=== PATIENT | female | born 1985 | race African-American/Black ===

== ENCOUNTER 2016-07-24 | Inpatient (IN) ==
[2016-07-24] MEDS ORDERED: ONDANSETRON 4 MG/2 ML VIAL IV PRN ×2 (00:14→05:41)
[2016-07-24] MEDS ORDERED: ACETAMINOPHEN 325 MG TABLET PO PRN ×2 (00:14→05:41)
[2016-07-24] MEDS ORDERED: BUTORPHANOL 2 MG/ML VIAL IV PRN (00:14)
[2016-07-24] MEDS ORDERED: OXYTOCIN/LR 20 UNIT/1,000 ML BAG IV SCH (00:30)
[2016-07-24 00:36] LABS: Basophils % 0.3 % (0.0-0.8); Eosinophils # 0.1 10*3/uL (0.0-0.87); Eosinophils % 0.8 % (0.00-10.9); Hematocrit 33.9 VOL% (35.7-47.0); Hemoglobin 11.1 GM/DL (12.0-16.0); Immature Granulocytes % 0.6 %; Immature Granulocytes Absolute 0.08 #; Lymphocytes # 3.6 10*3/uL (1.4-4.0); Lymphocytes % 26.5 % (21.3-54.2); Mean Corpuscular HGB Conc 32.7 GM/DL (32-36); Mean Corpuscular Hemoglobin 26 PG (27-34); Mean Corpuscular Volume 79.8 FL (87-102); Mean Platelet Volume 10.7 FL (9.6-12.0); Monocytes # 1.3 10*3/uL (0.11-0.8); Monocytes % 9.4 % (1.7-12.7); Neutrophils # 8.6 10*3/uL (1.4-7.4); Neutrophils % 62.4 % (38.7-73.9); Platelet Count 306 T/CUMM (130-400); Red Blood Count 4.25 MC/CUMM (3.8-5.5); Red Cell Distribution Width 13.9 % (9.3-17.3); White Blood Count 13.7 T/CUMM (4-12)
[2016-07-24] MEDS: LACTATED RINGERS 1,000 ML IV SCH ×2 (00:36→02:43)
[2016-07-24] MEDS ORDERED: AMPICILLIN INJ 2,000 MG in SODIUM CHLORIDE 0.9% 100 ML IV SCH (01:00)
[2016-07-24] MEDS ORDERED: FAMOTIDINE 20 MG/2 ML VIAL IV ONE (02:02)
[2016-07-24] MEDS ORDERED: ePHEDrine 50 MG/ML AMP IV PRN (02:02)
[2016-07-24] MEDS ORDERED: CITRIC ACID/SODIUM CITRATE 30 ML UDCUP PO ONE (02:02)
[2016-07-24] MEDS ORDERED: fentaNYL 2 MCG/ROPIV 0.2% EPID 150 ML EPIDURAL SCH (02:03)
[2016-07-24] MEDS ORDERED: MEPERIDINE 50 MG/1 ML VIAL IV PRN (02:35)
[2016-07-24] MEDS ORDERED: MEPERIDINE 50 MG/1 ML VIAL ONE (02:37)
[2016-07-24 04:47] LABS: Apearance,Urine CLEAR (Clear); Bilirubin,Urine Negative (Negative); Blood, Urine Negative (Negative); Glucose,Urine (UA) Negative (Negative); Ketones,Urine 5 mg/dL (Negative); Mucus,Urine Occasional /LPF (Occasional); Nitrite,Urine Negative (Negative); Protein,Urine Negative; RBC,Urine 1 /HPF (0-4); Squamous Epithelial Cell,Urine Occasional /HPF (0-10); Urine Color Yellow (Yellow); Urine Specific Gravity 1.026 (1.001-1.035); Urine Urobilinogen < 2.0 EU/DL (0.2-1.0); WBC,Urine 1 /HPF (0-6)
[2016-07-24] MEDS ORDERED: OXYTOCIN/LR 20 UNIT/1,000 ML BAG IV ONE (05:41)
[2016-07-24] MEDS ORDERED: LANOLIN 50% CREAM 0.3 OZ TUBE TOP PRN (05:41)
[2016-07-24] MEDS ORDERED: oxyCODONE/ACETAMINOPHEN 5-325 MG TABLET PO PRN (05:41)
[2016-07-24] MEDS ORDERED: HYDROCORTISONE 2.5% RECTAL CREAM 30 GM TUBE TOP PRN (05:41)
[2016-07-24] MEDS ORDERED: DIPH/TET/ACEL PERT BOOSTER VACCINE 0.5 ML VIAL IM ONE (05:41)
[2016-07-24] MEDS ORDERED: RHO(D) IMMUNE GLOBULIN 300 MCG SYRINGE IM ONE (05:41)
[2016-07-24] MEDS ORDERED: BENZOCAINE 20%/MENTHOL 0.5% SPRAY 56 GM CAN TOP PRN (05:41)
[2016-07-24] MEDS ORDERED: BISACODYL 10 MG SUPP RECTAL PRN (05:41)
[2016-07-24] MEDS ORDERED: MEASLES/MUMPS/RUBELLA VACCINE 0.5 ML VIAL SUBCUT ONE (05:41)
[2016-07-24] MEDS ORDERED: WITCH HAZEL PADS 100/JAR TOP PRN (05:41)
--- NOTE | 2016-07-24 05:43 | Operative Note ---
Date of procedure: 07/24/16 Procedure Preformed: Patient delivered a liveborn male infant via spontaneous vaginal delivery. Baby 's head was delivered in the OA position. The baby's nose mouth bulb suctioned the perineum. Anterior posterior shoulders followed by the body was delivered with ease. Status post internal after" was doubly clamped and cut. Cord blood was sent. Placenta was delivered spontaneously and intact with three-vessel cord. The uterus was massaged and was found to confirm a well contracted. The patient sustained no lacerations. Birthweight []. Apgars 8 9. Baby and mother stable. And the procedure all sponge lap counts correct 2. Surgeon / Physician: Kaci Fay Post-op diagnosis: same Findings: liveborn male infant Specimens: none sent Estimated blood loss: other (100ml) Condition: stable Anesthesia: epidural Disposition: floor
--- NOTE | 2016-07-24 05:44 | OB/GYN History & Physical ---
History of Present Illness Chief complaint: 39 weeks History of present illness: Ms. Avendano is a 30 year old female admitted for pitocin induction of labor at term Home Medications Medication Instructions Recorded Confirmed Type Ferrous Sulfate [Iron] 1 tablet PO DAILY 07/24/16 07/24/16 History No122/Iron/Folic Acid 1 tablet PO DAILY 07/24/16 07/24/16 History [ Multi Tablet] Ibuprofen Tab [Motrin Tab] 800 mg PO Q6H PRN #30 tablet 07/26/16 Rx Allergies Allergy/AdvReac Type Severity Reaction Status Date / Time No Known Allergies Allergy Verified 07/24/16 00:13 12 point system: reviewed and no additional remarkable complaints except as stated Medical,Surgical,& Family Hx - Medical History Musculoskeletal: No history of: Amputation Reproductive: No history of: Ectopic , Complication - Surgical History Abdominal Surgeries: Patient denies: Abdominal Surgery Reproductive Surgeries: Surgical HX of;: Gynecologic Surgery (CERCLAGE) Patient denies;: Section - Family History Family History: Reports;: Family Diabetes (MOM), Family Hypertension (MOM) Denies;: Family Anesthesia Reaction, Family Cancer, Family Heart Disease, Family Hematology, Family Psychiatric Problems, Family Stroke, Additional Family History - Social History Smoking Status: Never smoker Frequency of Alcohol Use: None Type of Drug Use: None 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 Vitals: Vital Signs Temp Pulse Resp BP Pulse Ox 07/24/16 04:00 98.4 F 80 18 143/74 07/24/16 00:11 98.6 F 71 20 135/65 100 General appearance: mild distress - Head Head exam: Present: normocephalic - Neck Neck exam: Present: normal inspection - Respiratory Respiratory exam: Present: clear to auscultation bilaterally - Cardiovascular Cardiovascular exam: Present: regular rate and rhythm - GI/Abdominal GI/Abdominal exam: Present: normal bowel sounds, soft - Extremities Exam Extremities exam: Present: normal inspection - Back Exam Back exam: Present: normal inspection - Neurological Exam Neurological exam: Present: alert, oriented X3 - Psychiatric Psychiatric exam: Present: normal affect, normal mood - Skin Skin exam: Present: normal color, warm Assessment and Plan (1) 39 weeks gestation of Status: Acute Assessment and plan: Pt admitted for induction of labor with pitocin. Expected Current Visit: Yes Results - Labs CBC & BMP: 07/25/16 05:24 Quality Measures - VTE Contraindication to Pharmacological VTE Prophylaxis: Clinical assessment deems Pt at low risk, no prophalaxis needed
[2016-07-24] MEDS: oxyCODONE/ACETAMINOPHEN 5-325 MG TABLET PO PRN ×2 (09:05→21:57)
[2016-07-24] MEDS: DOCUSATE SODIUM 100 MG CAPSULE PO SCH ×2 (09:05→21:30)
[2016-07-24] MEDS: IBUPROFEN 800 MG TABLET PO PRN ×2 (09:05→21:57)
[2016-07-25 05:43] LABS: Basophils # 0.1 10*3/uL (0.0-0.2); Basophils % 0.5 % (0.0-0.8); Eosinophils # 0.1 10*3/uL (0.0-0.87); Eosinophils % 0.9 % (0.00-10.9); Hematocrit 28.6 VOL% (35.7-47.0); Hemoglobin 9.5 GM/DL (12.0-16.0); Immature Granulocytes % 0.6 %; Immature Granulocytes Absolute 0.08 #; Lymphocytes # 4.3 10*3/uL (1.4-4.0); Lymphocytes % 34.5 % (21.3-54.2); Mean Corpuscular HGB Conc 33.2 GM/DL (32-36); Mean Corpuscular Hemoglobin 27 PG (27-34); Mean Corpuscular Volume 79.9 FL (87-102); Monocytes # 1.1 10*3/uL (0.11-0.8); Neutrophils # 6.8 10*3/uL (1.4-7.4); Neutrophils % 54.5 % (38.7-73.9); Platelet Count 252 T/CUMM (130-400); Red Blood Count 3.58 MC/CUMM (3.8-5.5); Red Cell Distribution Width 13.9 % (9.3-17.3); White Blood Count 12.4 T/CUMM (4-12)
[2016-07-25] MEDS: oxyCODONE/ACETAMINOPHEN 5-325 MG TABLET PO PRN (06:20)
[2016-07-25] MEDS: IBUPROFEN 800 MG TABLET PO PRN (06:20)
[2016-07-25] MEDS: DOCUSATE SODIUM 100 MG CAPSULE PO SCH ×2 (08:56→21:00)
[2016-07-25] MEDS ORDERED: RHO(D) IMMUNE GLOBULIN 300 MCG SYRINGE IM ONE (10:11)
[2016-07-26 07:38] VITALS: BP 143/92
--- NOTE | 2016-07-26 08:30 | OB/GYN Progress Note ---
Assessment and Plan (1) 39 weeks gestation of Status: Acute Assessment and plan: Pt admitted for induction of labor with pitocin. 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 - Constitutional Vitals: Vital Signs Temp Pulse Resp BP Pulse Ox 07/26/16 07:37 97.5 F L 65 16 143/92 96 07/26/16 04:00 98.1 F 59 L 16 122/83 100 07/26/16 00:00 97.5 F L 69 18 131/72 98 07/25/16 19:45 97.5 F L 68 20 116/77 97 07/25/16 16:08 97.3 F L 61 18 127/83 99 07/25/16 11:57 97.6 F 57 L 16 126/75 99 General appearance: no acute distress - Antepartum / Post Post Exam Abdomen obstetrics: Present: bowel sounds normal Vagina: Present: normal moisture Uterus exam: Present: normal size, normal contour Anus/Rectum: Present: normal perianal skin - Respiratory Respiratory exam: Present: clear to auscultation bilaterally - Cardiovascular Cardiovascular exam: Present: regular rate and rhythm - Extremities Exam Extremities exam: Present: normal inspection Results - Labs CBC & BMP: 07/25/16 05:24
--- NOTE | 2016-07-26 08:32 | Discharge Summary ---
Hospital Course - Hospital Course Hospital Course: This is a 30-year-old female at 39 weeks gestation who was admitted for induction of labor at term. Patient subsequently delivered a liveborn male infant via spontaneous vaginal delivery. Hospital course unremarkable by day #2 she was ready for discharge. Patient is bottlefeeding and plans control pills as her form of contraception Diagnosis - Discharge Diagnosis (1) 39 weeks gestation of Status: Acute (2) Vaginal delivery Status: Acute Specialty Discharge - Follow Up or Referrals Discharge Plan - Discharge Data Disposition: Disch To Home/Self Care Condition at Discharge: Stable Discharge Diet: advance to your usual diet Activity: resume usual activities as tolerated (Pelvic rest) Weight Bearing at Discharge: full weight bearing Driving: no restrictions Contact your physician if you experience:: fever over 101, Difficulty voiding, Redness or swelling, Nausea/Vomiting, Shortness of breath, Bleeding, pain uncontrolled by pain medications - Discharge Medications New Ibuprofen Tab [Motrin Tab] 800 mg PO Q6H PRN #30 tablet PRN Reason: Pain Moderate (4-7) No Action Ferrous Sulfate [Iron] 1 tablet PO DAILY No122/Iron/Folic Acid [ Multi Tablet] 1 tablet PO DAILY - Follow Up or Referral Follow Up: Kaci Fay MD [Physician] - 1 Month - Forms/Instructions Instructions: Perineal Care (DC), Vaginal Delivery (DC), Bleeding (DC) Exam - Constitutional Vitals: Period Temp Pulse Resp BP Sys/Odonnell Pulse Ox Last 24 Hr 97.3 F-98.1 F 57-69 16-20 116-143/72-92 96-100 General appearance: no acute distress - Head Head exam: Present: normocephalic - Neck Neck exam: Present: normal inspection - Respiratory Respiratory exam: Present: clear to auscultation bilaterally - Cardiovascular Cardiovascular exam: Present: regular rate and rhythm - GI/Abdominal GI/Abdominal exam: Present: normal bowel sounds, soft, other (Uterus firm and well contracted) - Extremities Exam Extremities exam: Present: normal inspection - Back Exam Back exam: Present: normal inspection - Neurological Exam Neurological exam: Present: alert, oriented X3 - Psychiatric Psychiatric exam: Present: normal affect, normal mood - Skin Skin exam: Present: normal color, warm DS: Provider Date of admission: 07/24/16 00:14 Primary care physician: . No PCP Attending physician on admission: Kaci Fay MD Consults: 07/24/16 00:14 Consult to Anesthesiology [CONS] Routine Consulting Provider: Reason for Anesthesiology: Epidural Consult Comment: Epidural for pain managment 07/24/16 05:41 Consult to Cantilever Crane Operator [CONS] Routine Consult Cantilever Crane Operator: Breast Feeding Discharging clinician: Kaci Fay MD
[2016-07-26] MEDS: DOCUSATE SODIUM 100 MG CAPSULE PO SCH (09:02)
== END 2016-07-26 12:00 | disposition home or self-care (01) | DRG 560 ==
LOC: N.LD → N.OB 08:56
PROVIDERS: ADMIT Obstetrics & Gynecology; ATTEND Obstetrics & Gynecology